=== PATIENT | male | born 2000 | race Hispanic/Latino ===

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

== ENCOUNTER 2022-12-12 12:43 | Emergency (ER) | payer OTHER ==
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
[2022-12-12] MEDS ORDERED: TDAP (DIPHTH,PERTUSS(ACELL),TET VAC) 0.5 ML VIAL IMVAC ONE (13:58)
[2022-12-12] MEDS ORDERED: SILVER SULFADIAZINE 1% 50 GM TOP ONE (14:00)
[2022-12-12 14:19] VITALS: BP 127/77; TEMP 98.8; O2SAT 100
[2022-12-12] MEDS ORDERED: SILVER SULFADIAZINE 1% 25 GM TOP ONE (14:19)
== END 2022-12-12 14:13 | disposition home or self-care (01) ==
LOC: ER 12:43
DX: T25.221A Burn of second degree of right foot, initial encounter (principal); T31.0 Burns involving less than 10% of body surface
CPT/HCPCS: 96372; 99284